=== PATIENT | male | born 1975 | race Caucasian/White ===

== ENCOUNTER → 2017-11-16 | Outpatient (CLI) | payer OTHER ==
[2017-11-16 10:52] LABS: ALT 176 U/L (21-72); AST 86 U/L (17-59); Albumin 4.3 g/dL (3.5-5.0); Alkaline Phosphatase 117 U/L (38-126); Anion Gap 13 mmol/L; Blood Urea Nitrogen 8 mg/dL (9-20); Carbon Dioxide 29 mmol/L (22-30); Chloride 98 mmol/L (98-107); Glucose 202 mg/dL (74-99); Potassium 4.6 mmol/L (3.5-5.1); Sodium 140 mmol/L (137-145); Total Bilirubin 0.8 mg/dL (0.2-1.3); Total Protein 7.1 g/dL (6.3-8.2)
[2017-11-16 18:03] LABS: Protein, Total 7.2 g/dL (6.2-8.2)
[2017-11-18 09:23] LABS: Ceruloplasmin 27.3 mg/dL (20.0-60.0)
[2017-11-19 10:13] LABS: Albumin 4.48 g/dL (3.80-4.90); Gamma Globulin 0.76 g/dL (0.70-1.50)
== END | disposition home or self-care (01) ==
LOC: LABWHC1 10:01
PROVIDERS: ATTEND Internal Medicine Gastroenterology
DX: R94.5 Abnormal results of liver function studies (principal)
CPT/HCPCS: 36415; 80053; 82103; 82390; 83516; 84165; 86038

== ENCOUNTER → 2018-02-12 | Outpatient (CLI) | payer OTHER ==
[2018-02-12 08:32] LABS: ALT 184 U/L (21-72); AST 96 U/L (17-59); Albumin 4.3 g/dL (3.5-5.0); Alkaline Phosphatase 96 U/L (38-126); Anion Gap 12 mmol/L; Blood Urea Nitrogen 12 mg/dL (9-20); Calcium 9.1 mg/dL (8.4-10.2); Carbon Dioxide 27 mmol/L (22-30); Chloride 100 mmol/L (98-107); Glucose 161 mg/dL (74-99); Potassium 4.9 mmol/L (3.5-5.1); Sodium 139 mmol/L (137-145); Total Bilirubin 0.6 mg/dL (0.2-1.3); Total Protein 7.1 g/dL (6.3-8.2)
[2018-02-12 16:25] LABS: Iron Saturation 27.09 (15.00-50.00)
== END | disposition home or self-care (01) ==
LOC: LABWHC1 06:32
PROVIDERS: ATTEND Internal Medicine Gastroenterology
DX: R79.89 Other specified abnormal findings of blood chemistry (principal)
CPT/HCPCS: 36415; 80053; 82728; 83540; 83550

== ENCOUNTER → 2018-06-11 | Outpatient (CLI) | payer OTHER ==
[2018-06-11 12:36] LABS: Albumin 4.3 g/dL (3.80-4.90); Albumin/Globulin Ratio 2.15 (1.20-2.10); Anion Gap 9.1 mmol/L (4.00-12.00); Calcium 9.1 mg/dL (8.7-10.3); Carbon Dioxide 27.9 mmol/L (21.6-31.8); Potassium 4.5 mmol/L (3.5-5.5); Total Bilirubin 0.9 mg/dL (0.3-1.2); Total Protein 6.3 g/dL (6.2-8.2)
== END | disposition home or self-care (01) ==
LOC: LABWHC1 06:36
PROVIDERS: ATTEND Internal Medicine Gastroenterology
DX: R94.5 Abnormal results of liver function studies (principal); R77.8 Other specified abnormalities of plasma proteins
CPT/HCPCS: 36415; 80053

== ENCOUNTER → 2018-11-26 | Outpatient (CLI) | payer OTHER ==
[2018-11-26 08:32] LABS: Basophils # (A) 0.1 k/uL (0-0.2); Basophils % (A) 1 %; Eosinophils # (A) 0.2 k/uL (0-0.7); Eosinophils % (A) 3 %; HCT 43.4 % (39.0-53.0); HGB 15.3 gm/dL (13.0-17.5); Lymphocytes # (A) 2.2 k/uL (1.0-4.8); Lymphocytes % (A) 35 %; MCH 32.6 pg (25.0-35.0); MCHC 35.1 g/dL (31.0-37.0); MCV 92.9 fL (80.0-100.0); Mean Platelet Volume 8.5; Monocytes # (A) 0.3 k/uL (0-1.0); Monocytes % (A) 5 %; Neutrophils # (A) 3.4 k/uL (1.3-7.7); Neutrophils % (A) 55 %; Platelet Count 213 k/uL (150-450); RBC 4.67 m/uL (4.30-5.90); RDW 14.2 % (11.5-15.5); WBC 6.3 k/uL (3.8-10.6)
[2018-11-26 08:53] LABS: Appearance,Urine Clear (Clear); Bilirubin,Urine Negative (Negative); Blood,Urine Negative (Negative); Color,Urine Yellow; Glucose,Urine (UA) 2+ (Negative); Ketones,Urine Negative (Negative); Leukocyte Esterase,Urine Negative (Negative); Nitrite,Urine Negative (Negative); Protein,Urine Negative (Negative); Specific Gravity,Urine 1.013 (1.001-1.035); Urobilinogen,Urine <2.0 mg/dL (<2.0)
[2018-11-26 17:01] LABS: Albumin 4.4 g/dL (3.80-4.90); Albumin/Globulin Ratio 2.32 (1.60-3.17); Anion Gap 7.4 mmol/L (4.00-12.00); Carbon Dioxide 27.6 mmol/L (21.6-31.8); Globulin 1.9 g/dL (1.6-3.3); LDL Cholesterol,Calculated 113.8 mg/dL (0.0-131.0); Potassium 4.3 mmol/L (3.5-5.5); Total Bilirubin 0.7 mg/dL (0.3-1.2); Total Protein 6.3 g/dL (6.2-8.2); VLDL Calculation 65.2 mg/dL (5.00-40.00)
[2018-11-26 20:40] LABS: Hemoglobin A1C 7.6 % (4.0-6.0)
== END | disposition home or self-care (01) ==
LOC: LABWHC1 07:01
PROVIDERS: ATTEND Family Medicine
DX: E11.9 Type 2 diabetes mellitus without complications (principal); E78.5 Hyperlipidemia, unspecified; R94.5 Abnormal results of liver function studies; R77.8 Other specified abnormalities of plasma proteins
CPT/HCPCS: 36415; 80053; 80061; 81003; 83036; 85025

== ENCOUNTER → 2019-06-30 | Outpatient (CLI) | payer OTHER ==
[2019-06-30 16:32] LABS: African American GFR (CKD) 93.5 (60.0-200.0); Albumin 4.7 g/dL (3.80-4.90); Albumin/Globulin Ratio 2.24 (1.60-3.17); Anion Gap 14.3 mmol/L (4.00-12.00); BUN/Creat Ratio 10.91 Ratio (12.00-20.00); Calcium 9.3 mg/dL (8.7-10.3); Carbon Dioxide 25.7 mmol/L (21.6-31.8); Globulin 2.1 g/dL (1.6-3.3); Non-African American GFR(CKD) 80.6 (60.0-200.0); Potassium 4.3 mmol/L (3.5-5.5); Total Bilirubin 0.6 mg/dL (0.2-1.2); Total Protein 6.8 g/dL (6.2-8.2)
== END | disposition home or self-care (01) ==
LOC: LABWHC1 06:31
PROVIDERS: ATTEND Internal Medicine Gastroenterology
DX: R94.5 Abnormal results of liver function studies (principal)
CPT/HCPCS: 36415; 80053

== ENCOUNTER → 2020-03-08 | Outpatient (CLI) | payer OTHER ==
[2020-03-08 07:49] LABS: Basophils # (A) 0.1 k/uL (0-0.2); Basophils % (A) 1 %; Eosinophils # (A) 0.2 k/uL (0-0.7); Eosinophils % (A) 2 %; HGB 16.1 gm/dL (13.0-17.5); Lymphocytes # (A) 2.5 k/uL (1.0-4.8); Lymphocytes % (A) 34 %; MCH 32.6 pg (25.0-35.0); MCHC 34.3 g/dL (31.0-37.0); MCV 94.9 fL (80.0-100.0); Mean Platelet Volume 9.2; Monocytes # (A) 0.4 k/uL (0-1.0); Monocytes % (A) 5 %; Neutrophils # (A) 4.2 k/uL (1.3-7.7); Neutrophils % (A) 57 %; Platelet Count 189 k/uL (150-450); RBC 4.95 m/uL (4.30-5.90); WBC 7.4 k/uL (3.8-10.6)
[2020-03-08 08:00] LABS: Appearance,Urine Clear (Clear); Bilirubin,Urine Negative (Negative); Blood,Urine Negative (Negative); Color,Urine Light Yellow; Glucose,Urine (UA) Negative (Negative); Ketones,Urine Negative (Negative); Leukocyte Esterase,Urine Negative (Negative); Nitrite,Urine Negative (Negative); PH, Urine 6.5 (5.0-8.0); Protein,Urine Negative (Negative); Specific Gravity,Urine 1.003 (1.001-1.035); Urobilinogen,Urine <2.0 mg/dL (<2.0)
[2020-03-08 12:47] LABS: African American GFR (CKD) 84.1 (60.0-200.0); Albumin 4.6 g/dL (3.80-4.90); Albumin/Globulin Ratio 1.84 (1.60-3.17); Anion Gap 7.4 mmol/L (4.00-12.00); BUN/Creat Ratio 8.33 Ratio (12.00-20.00); Calcium 9.6 mg/dL (8.7-10.3); Carbon Dioxide 29.6 mmol/L (21.6-31.8); Chol/HDL Ratio 5.74; Ferritin 352.6 ng/mL (22.0-322.0); Globulin 2.5 g/dL (1.6-3.3); LDL Cholesterol,Calculated 138.4 mg/dL (0.0-131.0); Magnesium 1.7 mg/dL (1.5-2.4); Non-African American GFR(CKD) 72.6 (60.0-200.0); Potassium 4.7 mmol/L (3.5-5.5); Total Bilirubin 0.8 mg/dL (0.3-1.2); Total Protein 7.1 g/dL (6.2-8.2); Uric Acid 7.8 mg/dL (3.7-8.7); VLDL Calculation 79.6 mg/dL (5.00-40.00)
[2020-03-08 14:30] LABS: Microalbumin Creatinine Ratio <30 mg/g Creat (0-30); Urine Creatinine 31.6 mg/dL
[2020-03-08 16:59] LABS: Hemoglobin A1C 7.9 % (4.0-6.0)
== END | disposition home or self-care (01) ==
LOC: LABWHC1 07:10
PROVIDERS: ATTEND Family Medicine
DX: E11.9 Type 2 diabetes mellitus without complications (principal); I10 Essential (primary) hypertension; E78.5 Hyperlipidemia, unspecified; R94.5 Abnormal results of liver function studies; M10.9 Gout, unspecified; Z79.899 Other long term (current) drug therapy
CPT/HCPCS: 36415; 80053; 80061; 81003; 82043; 82550; 82570; 82728; 82977; 83036; 83615; 83735; 84550; 85025

== ENCOUNTER → 2020-09-02 | Outpatient (CLI) | payer OTHER ==
[2020-09-02 11:29] LABS: % Iron Saturation 25.17 (15.00-50.00); African American GFR (CKD) 92.8 (60.0-200.0); Albumin/Globulin Ratio 2.5 (1.60-3.17); BUN/Creat Ratio 11.82 Ratio (12.00-20.00); Calcium 9.9 mg/dL (8.7-10.3); Chol/HDL Ratio 6.04; LDL Cholesterol,Calculated 168.4 mg/dL (0.0-131.0); Non-African American GFR(CKD) 80.1 (60.0-200.0); Potassium 4.6 mmol/L (3.5-5.5); Total Bilirubin 0.9 mg/dL (0.2-1.2); VLDL Calculation 58.6 mg/dL (5.00-40.00)
[2020-09-02 11:34] LABS: Ferritin 272.1 ng/mL (22.0-322.0)
[2020-09-02 13:11] LABS: Hemoglobin A1C 7.5 % (4.0-6.0)
== END | disposition home or self-care (01) ==
LOC: LABWHC1 07:06
PROVIDERS: ATTEND Internal Medicine Gastroenterology
DX: E78.5 Hyperlipidemia, unspecified (principal); E11.9 Type 2 diabetes mellitus without complications; R79.89 Other specified abnormal findings of blood chemistry
CPT/HCPCS: 36415; 80053; 80061; 82306; 82728; 83036; 83540; 83550; 84443

== ENCOUNTER 2021-03-19 11:06 | Emergency (ER) | payer OTHER ==
[2021-03-19 11:10] VITALS: BP 130/70; RESP 18; TEMP 97.7
[2021-03-19] MEDS ORDERED: KETOROLAC 15 MG/ML 1 ML VIAL IM STA (11:32)
[2021-03-19] MEDS ORDERED: ORPHENADRINE 30 MG/ML 2 ML VIAL IM STA (11:32)
[2021-03-19] MEDS ORDERED: HYDROcodone/APAP 5-325MG 1 EACH TAB PO STA (11:41)
--- NOTE | 2021-03-19 11:41 | ED ---
General Adult HPI - General Chief complaint: Back Pain/Injury Stated complaint: rt leg/back pain Source: patient, RN notes reviewed Mode of arrival: ambulatory Limitations: no limitations - History of Present Illness Initial comments: 45-year-old white male alert and oriented 4 presents to the emergency room with 3 days of right lower back pain that shoots down the back of his right leg. He states that 3 days ago he was brushing his teeth and when he bent over he felt the pain. He states he's been looking up online how long it will lasts cannot tolerate the pain any longer so he came in. He denies any trauma. Has not happened to him before. He denies any bowel or bladder incontinence, fevers, no recent surgeries and no history of cancer. -: days(s) (3) Location: back Radiation: extremity, distal Severity scale (1-10): 10 (Right leg) Quality: other Consistency: constant (Shooting) Improves with: immobilization Worsens with: movement Associated Symptoms: denies other symptoms Treatments Prior to Arrival: none - Related Data Previous Rx's Medication Instructions Recorded Ibuprofen [Motrin] 600 mg PO Q8HR PRN #30 tab 03/19/21 Lidocaine [Lidoderm 5% Patch] 1 patch TRANSDERM DAILY 14 Days 03/19/21 #14 patch Allergies Allergy/AdvReac Type Severity Reaction Status Date / Time No Known Allergies Allergy Verified 03/19/21 11:10 Review of Systems ROS Statement: Those systems with pertinent positive or pertinent negative responses have been documented in the HPI. ROS Other: All systems not noted in ROS Statement are negative. Past Medical History Past Medical History: Diabetes Mellitus History of Any Multi-Drug Resistant Organisms: None Reported Past Surgical History: No Surgical Hx Reported Past Psychological History: No Psychological Hx Reported Smoking Status: Never smoker Past Alcohol Use History: Occasional Past Drug Use History: None Reported General Exam Limitations: no limitations General appearance: alert, in no apparent distress Head exam: Present: atraumatic, normocephalic, normal inspection Eye exam: Present: normal appearance, PERRL, EOMI. Absent: scleral icterus, conjunctival injection, periorbital swelling Pupils: Present: normal accommodation ENT exam: Present: normal exam, normal oropharynx, mucous membranes moist Neck exam: Present: normal inspection, full ROM. Absent: tenderness, meningismus, lymphadenopathy, thyromegaly Respiratory exam: Present: normal lung sounds bilaterally. Absent: respiratory distress, wheezes, rales, rhonchi, stridor, chest wall tenderness, accessory muscle use, decreased breath sounds, prolonged expiratory Cardiovascular Exam: Present: tachycardia. Absent: JVD GI/Abdominal exam: Present: soft, normal bowel sounds. Absent: distended, tenderness, guarding, rebound, rigid Extremities exam: Present: normal inspection, full ROM, normal capillary refill. Absent: tenderness, pedal edema, joint swelling, calf tenderness Back exam: Present: normal inspection, full ROM, other (Sciatic notch tenderness right side). Absent: CVA tenderness (R), CVA tenderness (L) Expanded Back exam: Absent: saddle anesthesia Back exam: Sciatic Notch Tenderness: Right, Negative Straight Leg Raising: Left, Right Neurological exam: Present: alert, oriented X3, CN II-XII intact Psychiatric exam: Present: normal affect, normal mood Skin exam: Present: warm, dry, intact, normal color. Absent: rash, cyanosis, diaphoretic, petechiae, pallor, mottled Course Vital Signs 03/19/21 03/19/21 11:07 11:58 Temperature 97.7 F 97.7 F Pulse Rate 105 H 100 Respiratory 18 18 Rate Blood Pressure 130/70 130/70 O2 Sat by Pulse 97 97 Oximetry Medical Decision Making - Medical Decision Making Well-appearing male patient. Vital signs are stable. He denies any saddle anesthesia, no bowel or bladder incontinence, no history of cancers or surgical procedures. He denies any fevers or traumatic injury. He states he is just brushing his teeth when he bent over he felt the pain. He has point tenderness to the right sciatic notch and pain shoots down his leg consistent with sciatica. He was given Toradol and Norflex. He'll be prescribed Lidoderm patches and Motrin and directed to follow up with his primary care doctor. Strict return parameters for worsening pain, inability to ambulate, fevers or incontinence. Patient is agreeable to this plan of care. Case discussed Dr. Carcamo. Disposition Clinical Impression: Sciatica Disposition: HOME SELF-CARE Condition: Good Instructions (If sedation given, give patient instructions): Sciatica (ED), Acute Low Back Pain (ED), Lower Back Exercises (ED) Additional Instructions: Return if any worsening symptoms including fever, incontinence of bowel or bladder or elevated ambulate. Prescriptions: Lidocaine [Lidoderm 5% Patch] 1 patch TRANSDERM DAILY 14 Days #14 patch Ibuprofen [Motrin] 600 mg PO Q8HR PRN #30 tab PRN Reason: Pain Is patient prescribed a controlled substance at d/c from ED?: No Referrals: Claudia Agosto MD [Primary Care Provider] - 1-2 days Time of Disposition: 11:47
[2021-03-19 12:24] VITALS: PULSE 100
== END 2021-03-19 12:00 | disposition home or self-care (01) ==
LOC: EC 11:06
DX: M54.41 Lumbago with sciatica, right side (principal); M79.604 Pain in right leg; E11.9 Type 2 diabetes mellitus without complications; X50.0XXA Overexertion from strenuous movement or load, initial encounter
CPT/HCPCS: 99283; 96372; J2360; J1885

== ENCOUNTER → 2021-07-26 | Outpatient (CLI) | payer OTHER ==
[2021-07-26 08:54] LABS: Appearance,Urine Clear (Clear); Bilirubin,Urine Negative (Negative); Blood,Urine Negative (Negative); Color,Urine Light Yellow; Glucose,Urine (UA) 4+ (Negative); Ketones,Urine Negative (Negative); Leukocyte Esterase,Urine Negative (Negative); Nitrite,Urine Negative (Negative); Protein,Urine Negative (Negative); Urobilinogen,Urine <2.0 mg/dL (<2.0)
[2021-07-26 09:21] LABS: INR 0.9 (<1.2); Partial Thromboplastin Time 23.3 sec (22.0-30.0); Prothrombin Time 9.4 sec (9.0-12.0)
[2021-07-26 10:53] LABS: Basophils # (A) 0.05 X 10*3/uL (0.00-0.10); Basophils % (A) 0.8 %; Eosinophils % (A) 3.1 %; HGB 16.9 g/dL (13.0-17.0); Lymphocytes # (A) 1.84 X 10*3/uL (0.90-5.00); Lymphocytes % (A) 28.5 %; MCH 31.8 pg (27.0-32.0); MCHC 34.5 g/dL (32.0-37.0); MCV 92.1 fL (80.0-97.0); Monocytes # (A) 0.59 X 10*3/uL (0.20-1.00); Monocytes % (A) 9.1 %; Neutrophils # (A) 3.74 X 10*3/uL (1.80-7.70); Platelet Count 192 X 10*3/uL (140-440); RBC 5.32 X 10*6/uL (4.40-5.60); RDW 12.1 % (11.5-14.5); WBC 6.45 X 10*3/uL (4.50-10.00)
[2021-07-26 11:48] LABS: Albumin/Globulin Ratio 1.83 (1.60-3.17); Anion Gap 14.7 mmol/L (10.00-18.00); BUN/Creat Ratio 8.24 Ratio (12.00-20.00); Blood Urea Nitrogen 10.3 mg/dL (9.0-27.0); Globulin 2.7 g/dL (1.6-3.3); Non-African American GFR(CKD) 68.1 (60.0-200.0); Potassium 4.6 mmol/L (3.5-5.5); Total Bilirubin 0.8 mg/dL (0.30-1.20); Total Protein 7.7 g/dL (6.2-8.2)
== END | disposition home or self-care (01) ==
LOC: LABWHC1 06:52
PROVIDERS: ATTEND Neurological Surgery
DX: M54.16 Radiculopathy, lumbar region (principal)
CPT/HCPCS: 36415; 80053; 81003; 85025; 85610; 85730; 87070

== ENCOUNTER → 2021-08-08 | Outpatient (CLI) | payer BC | END | disposition home or self-care (01) | LOC: LABWHC1 15:51 | PROVIDERS: ATTEND Neurological Surgery | DX: M54.16 Radiculopathy, lumbar region (principal) | CPT/HCPCS: U0003; C9803 ==

== ENCOUNTER → 2022-03-30 | Outpatient (CLI) | payer BC ==
[2022-03-30 11:13] LABS: ALT 100 U/L (10-49); AST 64 U/L (14-35); Albumin 4.5 g/dL (3.8-4.9); Albumin/Globulin Ratio 1.96 (1.60-3.17); Alkaline Phosphatase 114 U/L (41-126); BUN/Creat Ratio 7.14 Ratio (12.00-20.00); Blood Urea Nitrogen 8.9 mg/dL (9.0-27.0); Calcium 9.1 mg/dL (8.7-10.3); Carbon Dioxide 28.6 mmol/L (20.0-27.5); Chloride 102 mmol/L (96-109); Chol/HDL Ratio 3.51 Ratio; Globulin 2.3 g/dL (1.6-3.3); Glucose 119 mg/dL (70-110); LDL Cholesterol,Calculated 69.6 mg/dL (0.0-131.0); Non-African American GFR(CKD) 68.1 (60.0-200.0); Potassium 4.6 mmol/L (3.5-5.5); Sodium 142 mmol/L (135-145); Total Protein 6.7 g/dL (6.2-8.2)
[2022-03-30 11:32] LABS: Basophils # (A) 0.03 X 10*3/uL (0.00-0.10); Basophils % (A) 0.7 %; Eosinophils # (A) 0.06 X 10*3/uL (0.04-0.35); Eosinophils % (A) 1.4 %; HCT 43.7 % (39.6-50.0); Immature Grans, Automated 0.5 %; Lymphocytes # (A) 1.61 X 10*3/uL (0.90-5.00); Lymphocytes % (A) 36.5 %; MCHC 34.3 g/dL (32.0-37.0); MCV 93.2 fL (80.0-97.0); Monocytes # (A) 0.63 X 10*3/uL (0.20-1.00); Monocytes % (A) 14.3 %; NRBC Per 100 WBC 0 /100 WBCS (0.0-0.0); Neutrophils # (A) 2.06 X 10*3/uL (1.80-7.70); Neutrophils % (A) 46.6 %; Platelet Count 156 X 10*3/uL (140-440); RBC 4.69 X 10*6/uL (4.40-5.60); RDW 12.9 % (11.5-14.5); WBC 4.41 X 10*3/uL (4.50-10.00)
[2022-03-30 20:07] LABS: Microalbumin Creatinine Ratio <30 mg/g Creat (0-30); Urine Creatinine 58.6 mg/dL (39.0-259.0)
== END | disposition home or self-care (01) ==
LOC: LABWHC1 07:59
PROVIDERS: ATTEND Family Medicine
DX: I10 Essential (primary) hypertension (principal); E11.9 Type 2 diabetes mellitus without complications; E78.5 Hyperlipidemia, unspecified; K75.81 Nonalcoholic steatohepatitis (NASH)
CPT/HCPCS: 36415; 80053; 80061; 82043; 82570; 83036; 85025

== ENCOUNTER → 2022-10-24 | Outpatient (CLI) | payer BC ==
[2022-10-24 16:48] LABS: Follicle Stimulating Hormone 6.1 mIU/mL; Luteinizing Hormone 5.2 mIU/mL; Prolactin 8.1 ng/mL (2.100-17.700); T4, Free (Free Thyroxine) 1.25 ng/dL (0.800-1.800)
[2022-10-24 19:29] LABS: Thyroid Peroxidase Antibodies <9.0 U/mL (0.0-33.0)
== END | disposition home or self-care (01) ==
LOC: LABWHC1 08:13
PROVIDERS: ATTEND Internal Medicine
DX: E29.1 Testicular hypofunction (principal); R53.82 Chronic fatigue, unspecified
CPT/HCPCS: 36415; 82306; 83001; 83002; 84146; 84270; 84402; 84403; 84439; 84443; 86376

== ENCOUNTER → 2023-02-08 | Outpatient (CLI) | payer BC ==
[2023-02-08 16:26] LABS: HCT 49.4 % (39.6-50.0); HGB 16.4 d/dL (12.0-15.0); MCH 31.1 pg (27.0-32.0); MCHC 33.2 d/dL (32.0-37.0); MCV 93.6 FL (80.0-97.0); Mean Platelet Volume 12.7 FL (9.5-12.2); NRBC Per 100 WBC 0 X 10*3/uL (0.00-0.01); Platelet Count 182 X 10*3/uL (140-440); RBC 5.28 X 10*6/uL (4.40-5.60); RDW 11.9 % (11.5-14.5); WBC 6.72 X 10*3/uL (4.50-10.00)
[2023-02-08 16:38] LABS: ALT 59 U/L (10-49); AST 37 U/L (14-35); Albumin 4.7 d/dL (3.8-4.9); Albumin/Globulin Ratio 1.96 Ratio (1.60-3.17); Alkaline Phosphatase 110 U/L (41-126); BUN/Creat Ratio 8.08 Ratio (12.00-20.00); Blood Urea Nitrogen 9.7 mg/dL (9.0-27.0); Calcium 9.8 mg/dL (8.7-10.3); Carbon Dioxide 25.7 mmol/L (21.6-31.8); Chloride 100 mmol/L (96-109); Globulin 2.4 d/dL (1.6-3.3); Glucose 118 mg/dL (70-110); Potassium 4.9 mmol/L (3.5-5.5); Sodium 139 mmol/L (135-145); Total Bilirubin 0.6 mg/dL (0.3-1.2); Total Protein 7.1 d/dL (6.2-8.2)
== END | disposition home or self-care (01) ==
LOC: LABWHC1 07:08
PROVIDERS: ATTEND Internal Medicine
DX: E29.1 Testicular hypofunction (principal)
CPT/HCPCS: 36415; 80053; 84153; 84402; 84403; 85027

== ENCOUNTER → 2023-07-15 | Outpatient (CLI) | payer BC ==
[2023-07-15 11:45] LABS: ALT 51 U/L (10-49); AST 24 U/L (14-35); Albumin 4.5 g/dL (3.8-4.9); Albumin/Globulin Ratio 1.88 Ratio (1.60-3.17); Alkaline Phosphatase 112 U/L (41-126); BUN/Creat Ratio 12.67 Ratio (12.00-20.00); Blood Urea Nitrogen 15.2 mg/dL (9.0-27.0); Calcium 9.3 mg/dL (8.7-10.3); Carbon Dioxide 25.6 mmol/L (21.6-31.8); Chloride 98 mmol/L (96-109); Globulin 2.4 g/dL (1.6-3.3); Glucose 151 mg/dL (70-110); Potassium 4.6 mmol/L (3.5-5.5); Sodium 136 mmol/L (135-145); Total Bilirubin 0.6 mg/dL (0.3-1.2); Total Protein 6.9 g/dL (6.2-8.2)
== END | disposition home or self-care (01) ==
LOC: LABWHC1 06:48
PROVIDERS: ATTEND Internal Medicine
DX: E29.1 Testicular hypofunction (principal)
CPT/HCPCS: 36415; 80053; 84402; 84403

== ENCOUNTER → 2023-11-21 | Outpatient (CLI) | payer BC | END | disposition home or self-care (01) | LOC: LABWHC1 07:04 | PROVIDERS: ATTEND Internal Medicine | DX: Z53.9 Procedure and treatment not carried out, unspecified reason (principal) ==

== ENCOUNTER → 2023-11-21 | Outpatient (CLI) | payer BC ==
[2023-11-21 11:20] LABS: Basophils # (A) 0.03 X 10*3/uL (0.00-0.10); Basophils % (A) 0.5 %; Eosinophils # (A) 0.11 X 10*3/uL (0.04-0.35); Eosinophils % (A) 1.7 %; HCT 47.8 % (39.6-50.0); HGB 16.5 g/dL (13.0-17.0); Lymphocytes # (A) 2.16 X 10*3/uL (0.90-5.00); MCH 31.8 pg (27.0-32.0); MCHC 34.5 g/dL (32.0-37.0); MCV 92.1 FL (80.0-97.0); Mean Platelet Volume 12.1 FL (9.5-12.2); Monocytes # (A) 0.49 X 10*3/uL (0.20-1.00); Monocytes % (A) 7.5 %; NRBC Per 100 WBC 0 X 10*3/uL (0.00-0.01); Neutrophils # (A) 3.74 X 10*3/uL (1.80-7.70); Neutrophils % (A) 57.1 %; Platelet Count 193 X 10*3/uL (140-440); RBC 5.19 X 10*6/uL (4.40-5.60); RDW 12.9 % (11.5-14.5); WBC 6.54 X 10*3/uL (4.50-10.00)
[2023-11-21 11:52] LABS: ALT 49 U/L (10-49); AST 35 U/L (14-35); Albumin 4.7 g/dL (3.8-4.9); Albumin/Globulin Ratio 2.04 Ratio (1.60-3.17); Alkaline Phosphatase 115 U/L (41-126); BUN/Creat Ratio 11.08 Ratio (12.00-20.00); Blood Urea Nitrogen 13.3 mg/dL (9.0-27.0); Calcium 9.7 mg/dL (8.7-10.3); Carbon Dioxide 23.1 mmol/L (21.6-31.8); Chloride 99 mmol/L (96-109); Globulin 2.3 g/dL (1.6-3.3); Glucose 153 mg/dL (70-110); Potassium 4.4 mmol/L (3.5-5.5); Prostate Specific Antigen 0.22 ng/mL (0.000-2.500); Sodium 136 mmol/L (135-145); Total Bilirubin 0.9 mg/dL (0.3-1.2)
== END | disposition home or self-care (01) ==
LOC: LABPAT 07:02
PROVIDERS: ATTEND Orthopaedic Surgery
DX: Z01.812 Encounter for preprocedural laboratory examination (principal); M75.41 Impingement syndrome of right shoulder
CPT/HCPCS: 80053; 84153; 84402; 84403; 85025

== ENCOUNTER 2023-12-11 05:49 | Day surgery (SDC) | payer BC ==
[2023-12-06 12:33] VITALS: BMI 29.4
--- NOTE | 2023-12-10 12:09 | HP ---
HISTORY AND PHYSICAL DATE OF SURGERY: 12/11/2023. HISTORY OF PRESENT ILLNESS: Erik Florez is a 48-year-old gentleman seen with progressive right shoulder pain. We discussed options. He elected to proceed with right shoulder arthroscopy. Consent was obtained. PAST MEDICAL HISTORY: Rbl-[id number]-[id number] diabetes, hyperlipidemia. PAST SURGICAL HISTORY: Back surgery. DAILY MEDICATIONS: None reported. SOCIAL HISTORY: He denies tobacco use. PHYSICAL EVALUATION OF THE RIGHT SHOULDER: Flexion is 90 degrees, abduction is 90 degrees. External rotation is 10 degrees with weakness and pain. Tenderness along the anterolateral acromion and rotator cuff insertion. Impingement is positive at 90 degrees. Cross-body adduction sign is positive. Drop-arm sign is positive. Distal neurovascular exam is intact IMAGING STUDIES: Right shoulder radiographs revealed a type 2 acromion, severe acromioclavicular joint osteoarthritis and cystic changes of the tuberosity. MRI of right shoulder revealed dislocated biceps tendon, calcific tendinitis, impingement, partial subscapularis tendon tear, and adhesive capsulitis. IMPRESSION: 1. Right shoulder impingement with partial rotator cuff tear/calcific tendinitis. 2. Right shoulder dislocated biceps tendon. 3. Right shoulder acromioclavicular joint osteoarthritis. 4. Right shoulder adhesive capsulitis. 5. Noninsulin dependent diabetes. 6. Hyperlipidemia. PLAN: Right shoulder arthroscopy with subacromial decompression, arthroscopic rotator cuff repair, Olena, biceps tenodesis, and possible lysis of adhesions. MMODL / IJN: [id number] /
[2023-12-11] MEDS ORDERED: ONDANSETRON 4 MG/2 ML VIAL ONE (06:18)
[2023-12-11] MEDS: LACTATED RINGERS 1,000 ML IV SCH (06:21)
[2023-12-11 06:43] VITALS: TEMP 98
[2023-12-11] MEDS: ONDANSETRON 4 MG/2 ML VIAL IVP ONE (06:45)
[2023-12-11] MEDS: SCOPOLAMINE 1 MG/72 HR PATCH TRANSDERM ONE (06:45)
[2023-12-11] MEDS: DEXAMETHASONE SOD PHOSPHATE 4 MG/ML 1 ML VIAL IVP ONE (06:45)
[2023-12-11 06:51] LABS: Glucose,Whole Blood 164 mg/dL (70-110)
[2023-12-11] MEDS: MIDAZOLAM 2 MG/2 ML VIAL IVP ONE (06:52)
[2023-12-11] MEDS: fentaNYL (PF) 50 MCG/ML 2 ML AMP IVP ONE (06:53)
--- NOTE | 2023-12-11 07:11 | P.ANPRN ---
Procedure Note - Anesthesia - Nerve Block Performed Right Interscalene Single Date of Procedure: 12/11/23 Procedure Start Time: 06:52 Procedure Stop Time: 07:00 Indication: Acute Post-Operative Pain, Requested by Surgeon Sedation Type: Sedate with meaningful contact maintained Preparation: Sterile Prep Position: Sitting Needle Types: Facet Needle Gauge: 21 Ultrasound used to visualize needle placement: Yes Ultrasound used to observe medication spread: Yes Injectate: 0.5% Ropivacaine (see comment for volume) Blood Aspirated: No Pain Paresthesia on Injection Noted: No Resistance on Injection: Normal Image Stored and Saved: Yes Events: Uneventful and Well Tolerated (20 mls)
[2023-12-11] MEDS ORDERED: PROPOFOL 10 MG/ML 20 ML VIAL IV ONE (07:23)
[2023-12-11] MEDS ORDERED: ePHEDrine 50 MG/ML 1 ML VIAL ONE (07:23)
[2023-12-11] MEDS ORDERED: SUCCINYLCHOLINE CHLORIDE 200 MG/10 ML VIAL IV ONE (07:23)
[2023-12-11] MEDS ORDERED: ROCURONIUM 10 MG/ML (5 ML VIAL) IV ONE (07:23)
[2023-12-11] MEDS ORDERED: fentaNYL (PF) 50 MCG/ML 2 ML AMP ONE (07:23)
[2023-12-11] MEDS ORDERED: ROPIVACAINE 5 MG/ML 30 ML VIAL ONE (07:23)
[2023-12-11] MEDS ORDERED: LIDOCAINE 4% LTA KIT (4 ML) TOPICAL ONE (07:23)
[2023-12-11] MEDS ORDERED: LIDOCAINE 1% INJ 10MG/ML (20 ML MDV) ONE (07:23)
[2023-12-11] MEDS ORDERED: MIDAZOLAM 2 MG/2 ML VIAL ONE (07:23)
[2023-12-11 07:31] VITALS: RESP 16
[2023-12-11 09:11] LABS: Glucose,Whole Blood 161 mg/dL (70-110)
--- NOTE | 2023-12-11 09:12 | P.OP ---
Date of Procedure: 12/11/23 Preoperative Diagnosis: Right shoulder impingement Postoperative Diagnosis: 1. Right shoulder rotator cuff tear 2. Right shoulder impingement 3. Right shoulder bicipital tendinitis 4. Right shoulder acromioclavicular joint osteoarthritis 5. Right shoulder superficial superior labral tears Procedure(s) Performed: 1. Right shoulder arthroscopic rotator cuff repair 2. Right shoulder arthroscopic subacromial decompression 3. Right shoulder arthroscopic biceps tenodesis 4. Right shoulder arthroscopic Olena procedure 5. Right shoulder arthroscopic debridement superficial labral tear Implants: 2Arthrex 4.75 swivel lock anchors Anesthesia: GETA, regional (Interscalene block) Surgeon: David Lozano [employer]illery Targeting Technician #1: Gino Carney Estimated Blood Loss (ml): 10 Pathology: none sent Condition: stable Disposition: PACU Indications for Procedure: 48-year-old gentleman seen with progressive right shoulder pain. After having treatment options discussed, he elected to proceed with arthroscopy. Operative Findings: See description of procedure Description of Procedure: Patient underwent an interscalene block by department of anesthesia. The patient was then taken to the operative suite. The patient underwent a general anesthetic by the department of anesthesia. The patient was placed into a lateral position and secured. There was appropriate padding of the bony prominence. Right shoulder was then prepped and draped in normal sterile orthopedic fashion. We placed the extremity in 10 pounds of longitudinal traction. A posterior incision was now made for a posterior working portal site. The trocar and cannula were inserted into the glenohumeral joint. Arthroscopy was initiated. Spinal needle was now inserted anteriorly, to ascertain the anterior working portal site. An incision was now made in that area, a trocar was inserted followed by a probe. There was superficial tearing of the superior labrum. There was hyperemia long head biceps tendon. There was no significant chondromalacia present. I debrided out the superficial labral tears. I decided to proceed with arthroscopic biceps tenodesis. I introduced the cannula through an anterior portal site. I now passed a loop and tack type stitch to the biceps tendon. I now released the biceps tendon from the superior labral attachment. With the assistance of Sp CLEMENT I punched a hole at the interval for insertion of an anchor. The suture line was not passed through the eyelet of an Arthrex 4.75 swivel lock anchor. I placed the eyelet into the prepunched a hole and held in position while Sp CLEMENT tensioned the suture and deployed the anchor with good fixation noted. The residual suture limb was clipped. We had a stable appearing biceps tenodesis. Instruments were removed from the glenohumeral joint. Utilizing the posterior working portal site, the trocar and cannula were inserted into the subacromial space. Arthroscopy initiated. I made an incision 2 fingerbreadths lateral to the acromion. I introduced my trocar followed by my ArthroCare ablator. I now began ablating thick subacromial bursal tissue, which exposed the undersurface of the anterior acromion. There was diminished subacromial space. There was a very prominent anterior acromion. A motorized bur was introduced and a subacromial decompression was performed. I also excised some osteophytes off the inferior aspect of the distal clavicle. The AC joint was visualized and noted to be fairly arthritic. The motorized bur was introduced in the anterior portal site and a Olena procedure was performed without difficulty removing 8 mm off the distal clavicle, decompressing the AC joint nicely. I turned my attention to the rotator cuff. There was a 1 cm tear along the distal supraspinatus tendon. I debrided the margins getting down to stable tendon tissue. I abraded the footprint with a motorized bur. With the assistance of Sp CLEMENT I passed 2 Ubretid mattress sutures and 1 suture like more posteriorly. I punched a hole in the footprint area for insertion of an anchor. All 5 limbs of suture were passed through the eyelet of an Arthrex 4.75 swivel lock anchor. I placed the eyelet into our prepunched a hole. I held in position while Sp CLEMENT tensioned the sutures and deployed the anchors with good fixation noted. All residual suture limbs were now clipped. We had good compression of the tendon along the entire footprint. Instruments now removed from the portal sites. All portal sites were approximated with nylon suture. Sterile dressings were applied followed by a shoulder sling. Gino CLEMENT assisted in this complex case. The patient was awakened, transferred to a bed, and taken to recovery in stable condition.
[2023-12-11 11:24] VITALS: BP 150/87; PULSE 95
== END 2023-12-11 11:10 | disposition home or self-care (01) ==
LOC: OR 05:49
PROVIDERS: ATTEND Orthopaedic Surgery
DX: M75.41 Impingement syndrome of right shoulder (principal); M75.21 Bicipital tendinitis, right shoulder; M19.011 Primary osteoarthritis, right shoulder; I10 Essential (primary) hypertension; E11.9 Type 2 diabetes mellitus without complications; E78.5 Hyperlipidemia, unspecified; M75.01 Adhesive capsulitis of right shoulder; Z79.899 Other long term (current) drug therapy
CPT/HCPCS: 64447; 29827; 29826; 29824; C1713 ×4; J2250; J0330; J1100; J0690; J2405; J2001; J3010; J2795; J2704

== ENCOUNTER → 2024-06-18 | Outpatient (CLI) | payer BC ==
[2024-06-18 16:04] LABS: HCT 43.4 % (39.6-50.0); MCH 30.3 pg (27.0-32.0); MCHC 32.3 g/dL (32.0-37.0); MCV 93.9 FL (80.0-97.0); NRBC Per 100 WBC 0 X 10*3/uL (0.00-0.01); Platelet Count 207 X 10*3/uL (140-440); RBC 4.62 X 10*6/uL (4.40-5.60); RDW 13.2 % (11.5-14.5); WBC 7.35 X 10*3/uL (4.50-10.00)
[2024-06-18 16:14] LABS: ALT 254 U/L (10-49); AST 74 U/L (14-35); Albumin 4.4 g/dL (3.8-4.9); Alkaline Phosphatase 188 U/L (41-126); Blood Urea Nitrogen 11.4 mg/dL (9.0-27.0); Calcium 9.5 mg/dL (8.7-10.3); Carbon Dioxide 24.6 mmol/L (21.6-31.8); Chloride 98 mmol/L (96-109); Globulin 2.2 g/dL (1.6-3.3); Glucose 169 mg/dL (70-110); Potassium 4.9 mmol/L (3.5-5.5); Sodium 136 mmol/L (135-145); Total Bilirubin 0.3 mg/dL (0.3-1.2); Total Protein 6.6 g/dL (6.2-8.2)
== END | disposition home or self-care (01) ==
LOC: LABWHC1 07:54
PROVIDERS: ATTEND Internal Medicine
DX: E29.1 Testicular hypofunction (principal)
CPT/HCPCS: 36415; 80053; 84402; 84403; 85027

== ENCOUNTER → 2024-10-13 | Outpatient (CLI) | payer BC ==
--- NOTE | 2024-10-13 19:56 | MR ---
EXAMINATION TYPE: MR shoulder LT wo con DATE OF EXAM: 10/13/2024 7:30 PM COMPARISON: Radiographs. CLINICAL INDICATION: Male, 49 years old with history of M25.512 PAIN IN LEFT SHOULDER; PHH, LT should er pain x2 months, Difficult to raise arm TECHNIQUE: Multi planar, multi sequence imaging was performed of the shoulder including: Axial and coronal tristan n density fat-saturated sequences, T2 fat-saturated sagittal sequence, and T1-weighted imaging. No G adolinium was given. LT shoulder pain x2 months, Difficult to raise arm FINDINGS: Supraspinatus tendon: Posterior fibers with bursal surface full-thickness tear near its insertion measuring 8 x 8 mm series 701 image 4. Infraspinatus tendon: Anterior fibers with bursal surface full-thickness tear near its insertion measuring 8 x 8 mm series 701 image 4. Subscapularis tendon partial-thickness articular surface tear measuring up to 5 mm. Intraosseous gang lion cyst near the this tear. Teres minor tendon: Intact Long head biceps tendon: Intact, appropriately positioned within the bicipital groove. Normal ins ertion at the bicipital anchor. Trace amount of bursal fluid around the long head of biceps tendon. Acromioclavicular joint: Mild osteoarthrosis. Undersurface spurring impinging on the supraspinat us tendon. No effusion. Glenohumeral joint: Normal joint space and alignment. Normal articular cartilage. No effusion. Glenoid labrum: There is SLAP tear of the superior labrum abnormal appearance of the anterior lab rum with suspected tear present versus Ady complex. Muscle volume: Normal. Bone marrow: Normal. Soft tissues: Unremarkable. Joint/bursal fluid: None IMPRESSION: 1. Full-thickness rotator cuff tear of the posterior supraspinatus fibers in the anterior interspace fibers near their insertion on the bursal surface. 2. SLAP tear of the labrum with anterior labral tear versus Welsh complex 3. Partial-thickness articular surface tear of the subscapularis near its insertion. 4. [id number] acromioclavicular joint arthropathy. 5. Trace fluid along the long head of the biceps tendon correlate for tenosynovitis. [facility], , 10/13/2024 7:54 PM
== END | disposition home or self-care (01) ==
LOC: RADMRIMAIN 18:59
PROVIDERS: ATTEND Orthopaedic Surgery
DX: M19.012 Primary osteoarthritis, left shoulder (principal); M75.112 Incomplete rotator cuff tear or rupture of left shoulder, not specified as traumatic

== ENCOUNTER → 2024-11-06 | Outpatient (CLI) | payer BC ==
[2024-11-06 18:10] LABS: Basophils # (A) 0.03 X 10*3/uL (0.00-0.10); Basophils % (A) 0.5 %; Eosinophils # (A) 0.09 X 10*3/uL (0.04-0.35); Eosinophils % (A) 1.6 %; HCT 43.1 % (39.6-50.0); HGB 14.5 g/dL (13.0-17.0); Lymphocytes # (A) 1.85 X 10*3/uL (0.90-5.00); Lymphocytes % (A) 33.8 %; MCH 31.6 pg (27.0-32.0); MCHC 33.6 g/dL (32.0-37.0); MCV 93.9 FL (80.0-97.0); Mean Platelet Volume 12.2 FL (9.5-12.2); Monocytes # (A) 0.36 X 10*3/uL (0.20-1.00); Monocytes % (A) 6.6 %; NRBC Per 100 WBC 0 X 10*3/uL (0.00-0.01); Neutrophils # (A) 3.13 X 10*3/uL (1.80-7.70); Neutrophils % (A) 57.1 %; Platelet Count 197 X 10*3/uL (140-440); RBC 4.59 X 10*6/uL (4.40-5.60); RDW 12.4 % (11.5-14.5); WBC 5.48 X 10*3/uL (4.50-10.00)
[2024-11-06 18:29] LABS: Anion Gap 11.6 mmol/L (4.00-12.00); Carbon Dioxide 27.4 mmol/L (21.6-31.8); Potassium 4.4 mmol/L (3.5-5.5)
== END | disposition home or self-care (01) ==
LOC: LABWHC1 14:09
PROVIDERS: ATTEND Orthopaedic Surgery
DX: Z01.818 Encounter for other preprocedural examination (principal); M75.42 Impingement syndrome of left shoulder
CPT/HCPCS: 36415; 80051; 85025; 93005

== ENCOUNTER 2024-11-25 05:52 | Day surgery (SDC) | payer BC ==
[2024-11-20 15:11] VITALS: BMI 28.7
--- NOTE | 2024-11-24 14:00 | HP ---
HISTORY AND PHYSICAL DATE OF SURGERY: 11/25/2024. HISTORY OF PRESENT ILLNESS: Erik Florez is a 49-year-old gentleman seen with progressive left shoulder pain. We discussed options regarding treatment. He elected to proceed with left shoulder arthroscopy. Consent was obtained. PAST MEDICAL HISTORY: Hypertension, hyperlipidemia, mso-rtxgyld-hwsuyhiro diabetes. SURGICAL HISTORY: Lumbar fusion. DAILY MEDICATIONS: 1. Farxiga. 2. Metformin. 3. Omeprazole. 4. Rosuvastatin. 5. Aleve. ALLERGIES: None. SOCIAL HISTORY: Denies tobacco use. PHYSICAL EVALUATION OF THE LEFT SHOULDER: Flexion is 140 degrees. Abduction is 90 degrees. External rotation is 30 degrees with pain and weakness. Tenderness along the anterolateral acromion, acromioclavicular joint, as well as the bicipital groove. Soft tissue tenderness along the rotator cuff tendon, long head biceps tendon. Impingement is positive at 90 degrees. Drop-arm sign is positive. Distal neurovascular exam is intact. IMAGING STUDIES: Left shoulder radiographs revealed a type 3 acromion, acromioclavicular joint osteoarthritis, and cystic changes of the greater tuberosity. MRI of left shoulder revealed rotator cuff tendon tear, labral tear, bicipital tenosynovitis, and acromioclavicular joint osteoarthritis. IMPRESSION: Left shoulder impingement with rotator cuff tear, labral tear, acromioclavicular joint osteoarthritis, bicipital tendinitis. PLAN: Left shoulder arthroscopy with subacromial decompression, rotator cuff repair, Olena procedure, biceps tenodesis, and debridement of labral tear. MMODL / IJN: [id number] /
[2024-11-25] MEDS ORDERED: LIDOCAINE 1% (10MG/ML) FOR IV START INTRADERMA PRN (06:11)
[2024-11-25] MEDS ORDERED: droPERidol 2.5 MG/ML VIAL IVP ONE (06:11)
[2024-11-25] MEDS: IV FLUID CONTINUATION 1,000 ML IV ONE (06:19)
[2024-11-25 06:43] LABS: Glucose,Whole Blood 137 mg/dL (70-110)
[2024-11-25] MEDS: LACTATED RINGERS 1,000 ML IV SCH (06:48)
[2024-11-25] MEDS: DEXAMETHASONE SOD PHOSPHATE 4 MG/ML 1 ML VIAL IV ONE (06:48)
[2024-11-25] MEDS: ONDANSETRON 4 MG/2 ML VIAL IVP ONE (06:48)
[2024-11-25] MEDS: MIDAZOLAM 2 MG/2 ML VIAL IV ONE (06:52)
[2024-11-25] MEDS ORDERED: HYDROmorphone 0.5 MG/0.5 ML SYRINGE IVP PRN (07:00)
[2024-11-25] MEDS ORDERED: PHENYLEPHRINE-0.9% NACL SYG 1,000 MCG/10 ML SYRINGE ONE (07:26)
[2024-11-25] MEDS ORDERED: MIDAZOLAM 2 MG/2 ML VIAL ONE (07:26)
[2024-11-25] MEDS ORDERED: DEXAMETHASONE SOD PHOSPHATE 4 MG/ML 1 ML VIAL ONE (07:26)
[2024-11-25] MEDS ORDERED: fentaNYL (PF) 50 MCG/ML 2 ML AMP ONE (07:26)
[2024-11-25] MEDS ORDERED: ROCURONIUM 10 MG/ML (5 ML VIAL) IV ONE (07:26)
[2024-11-25] MEDS ORDERED: PROPOFOL 10 MG/ML 20 ML VIAL IV ONE (07:26)
[2024-11-25] MEDS ORDERED: SUCCINYLCHOLINE CHLORIDE 200 MG/10 ML VIAL IV ONE (07:26)
[2024-11-25] MEDS ORDERED: LIDOCAINE 1% INJ 10MG/ML (20 ML MDV) ONE (07:26)
[2024-11-25] MEDS ORDERED: LIDOCAINE 4% LTA KIT (4 ML) TOPICAL ONE (07:26)
[2024-11-25] MEDS ORDERED: ROPIVACAINE 5 MG/ML 30 ML VIAL ONE (07:26)
[2024-11-25] MEDS: ceFAZolin 2 GM in DEXTROSE 5% IN WATER 50 ML IVPB PRN (07:29)
[2024-11-25 09:16] VITALS: RESP 16; TEMP 96.8
--- NOTE | 2024-11-25 09:20 | P.OP ---
Date of Procedure: 11/25/24 Preoperative Diagnosis: Left shoulder impingement Postoperative Diagnosis: 1. Left shoulder rotator cuff tear 2. Left shoulder impingement 3. Left shoulder bicipital tendinitis 4. Left shoulder superficial labral tear Procedure(s) Performed: 1. Left shoulder arthroscopic rotator cuff repair 2. Left shoulder arthroscopic subacromial decompression 3. Left shoulder arthroscopic biceps tenodesis 4. Left shoulder arthroscopic debridement labral tear Implants: 2Arthrex 4.75 swivel lock anchors Anesthesia: GETA, regional (Interscalene block) Surgeon: David Lozano Estimator Printing Plate Making #1: Gino Carney Estimated Blood Loss (ml): 7 Pathology: none sent Condition: stable Disposition: PACU Indications for Procedure: 49-year-old patient seen with progressive left shoulder pain. After having treatment options discussed, he elected to proceed with arthroscopy. Operative Findings: See description of procedure Description of Procedure: Patient underwent an interscalene block by department of anesthesia. The patient was then taken to the operative suite. The patient underwent a general anesthetic by the department of anesthesia. The patient was placed into a lateral position and secured. There was appropriate padding of the bony prominence. Left shoulder was then prepped and draped in normal sterile orthopedic fashion. We placed the extremity in 10 pounds of longitudinal traction. A posterior incision was now made for a posterior working portal site. The trocar and cannula were inserted into the glenohumeral joint. Arthroscopy was initiated. Spinal needle was now inserted anteriorly, to ascertain the anterior working portal site. An incision was now made in that area, a trocar was inserted followed by a probe. There was superficial tearing of the superior labrum. There was hyperemia of the long head biceps tendon consistent with bicipital tendinitis. There was no significant chondromalacia present. I introduced a motorized shaver and debrided out the superficial labral tear again on the stable labral tissue. I now placed a cannula through the anterior portal site. I passed a loop and tack stitch to the biceps tendon and then release it from the superior labral anchor. With the assistance of Sp CLEMENT partial hole at the interval for insertion of an anchor. The suture line was passed through the eyelet of an Arthrex 4.75 swivel lock anchor. I placed the into the prepunched hole and held in position while Sp CLEMENT tensioned the suture and deployed the anchor with good fixation noted. The residual suture limb was now clipped. We had a stable appearing biceps tenodesis. Instruments were now removed from the glenohumeral joint. Utilizing the posterior working portal site, the trocar and cannula were inserted into the subacromial space. Arthroscopy initiated. I made an incision 2 fingerbreadths lateral to the acromion. I introduced my trocar followed by my ArthroCare ablator. I now began ablating thick subacromial bursal tissue, which exposed the undersurface of the anterior acromion. There was diminished subacromial space. There was a very prominent anterior acromion. A motorized bur was introduced and a subacromial decompression was performed. I also excised some osteophytes off the inferior aspect of the distal clavicle. The AC joint was visualized and noted to be moderately arthritic, I did not think enough to warrant a Olena procedure. I turned my attention to the rotator cuff tendon. Upon probing the distal supraspinatus I noted a full-thickness perforation present. I debrided the margins getting down to stable tendon tissue. The defect/tear measured just about a centimeter. I abraded the footprint with a motorized bur. With the assistance of Sp CLEMENT passed 2 Ubretid mattress sutures through good bites of rotator cuff tendon. I punched a hole in the footprint area for insertion of an anchor. All 4 limbs of suture were passed through the eyelet of an Arthrex 4.75 swivel lock anchor. I placed the eyelet into the prepunch hole. I held in position while Sp CLEMENT tensioned all 4 limbs of suture and deployed the anchor with good fixation noted.. All residual suture limbs were now clipped. We had good compression of the tendon along the footprint. Instruments now removed from the portal sites. All portal sites were approximated with nylon suture. Sterile dressings were applied followed by a shoulder immobilizer. Gino CLEMENT assisted in all aspects of this case. The patient was awakened, transferred to a bed, and taken to recovery in stable condition.
[2024-11-25 10:26] VITALS: BP 124/82; PULSE 100
--- NOTE | 2024-11-25 12:26 | P.ANPRN ---
Procedure Note - Anesthesia - Nerve Block Performed Left Interscalene Single Time Out Performed: Yes (652) Date of Procedure: 11/25/24 Procedure Start Time: 06:53 Procedure Stop Time: 06:57 Location of Patient: PreOp Indication: Acute Post-Operative Pain, Requested by Surgeon Specifically requested for management of pain by DrThanh: David Lozano Sedation Type: Sedate with meaningful contact maintained Preparation: Sterile Prep Position: Supine Catheter: None Needle Types: Pajunk Needle Gauge: 21 Ultrasound used to visualize needle placement: Yes Ultrasound used to observe medication spread: Yes Injectate: 0.5% Ropivacaine (see comment for volume) (30cc + decadron 4mg) Blood Aspirated: No Pain Paresthesia on Injection Noted: No Resistance on Injection: Normal Image Stored and Saved: Yes Events: Uneventful and Well Tolerated
== END 2024-11-25 10:43 | disposition home or self-care (01) ==
LOC: OR 05:52
PROVIDERS: ATTEND Orthopaedic Surgery
DX: M75.102 Unspecified rotator cuff tear or rupture of left shoulder, not specified as traumatic (principal); M75.22 Bicipital tendinitis, left shoulder; M19.012 Primary osteoarthritis, left shoulder; M75.42 Impingement syndrome of left shoulder; G89.18 Other acute postprocedural pain; E11.9 Type 2 diabetes mellitus without complications; E78.5 Hyperlipidemia, unspecified; I10 Essential (primary) hypertension; Z79.84 Long term (current) use of oral hypoglycemic drugs; Z79.899 Other long term (current) drug therapy; Z79.1 Long term (current) use of non-steroidal anti-inflammatories (NSAID)
CPT/HCPCS: 64415; 29826; 29827; 29828; C1713 ×3; J2250; J0330; J1100; J0690; J2405; J2003; J3010; J2795; J2704; J2371